=== PATIENT | female | born 1985 | race Caucasian/White ===

== ENCOUNTER 2023-03-27 16:33 | Observation (INO) | payer BC ==
[2023-03-27] MEDS ORDERED: Diphtheria,Pertussis(Acell),Tetanus Vaccine 0.5 ML Syringe IM ONE (16:34)
[2023-03-27] MEDS ORDERED: Ondansetron 4 MG/2 ML SDV IVPUSH ONE (16:34)
[2023-03-27] MEDS ORDERED: HYDROmorphone 0.5 MG/0.5 ML Syringe IVPUSH ONE (16:34)
[2023-03-27] MEDS ORDERED: Sodium Chloride 0.9% 50 ML IV SCH (16:45)
[2023-03-27] MEDS ORDERED: Iopamidol 612 MG/ML 100 ML Bottle IV SCH (16:45)
[2023-03-27 16:46] LABS: BASOPHILS ABSOLUTE AUTO 0.08 K/uL (0.00-0.10); BASOPHILS PERCENT AUTO 0.7 % (0.1-1.3); EOSINOPHILS ABSOLUTE AUTO 0.24 K/uL (0.00-0.40); EOSINOPHILS PERCENT AUTO 2.2 % (0.0-5.4); HEMOGLOBIN 14.6 g/dL (11.2-15.5); IMMATURE GRAN ABSOLUTE AUTO 0.05 K/uL (0.00-0.23); IMMATURE GRAN PERCENT AUTO 0.5 % (0.0-0.7); LYMPHOCYTES ABSOLUTE AUTO 2.73 K/uL (0.8-3.3); LYMPHOCYTES PERCENT AUTO 24.7 % (11.4-47.7); MEAN CORPUSCULAR HEMOGLOBIN 30.4 pg (31.6-35.5); MEAN CORPUSCULAR HGB CONC 34.8 g/dL (31.6-35.5); MEAN CORPUSCULAR VOLUME 87.3 fL (81.4-99.0); MONOCYTES ABSOLUTE AUTO 0.84 K/uL (0.20-0.90); MONOCYTES PERCENT AUTO 7.6 % (3.3-12.6); NEUTROPHILS ABSOLUTE AUTO 7.11 K/uL (1.0-7.6); NEUTROPHILS PERCENT AUTO 64.3 % (40.0-78.1); PLATELET COUNT,PLT 399 K/uL (130-375); RED BLOOD CELL COUNT 4.81 M/uL (3.77-5.24); WHITE BLOOD CELL COUNT,WBC 11.1 K/uL (3.2-11.0)
[2023-03-27 17:11] LABS: A/G RATIO 0.9 (1.2-2.2); ALANINE AMINOTRANSFERASE,ALT 23 U/L (12-78); ALBUMIN 3.3 g/dL (3.4-5.0); ALKALINE PHOSPHATASE 68 U/L (46-116); ANION GAP 13.1 mmol/L (5.0-14.0); ASPARTATE AMNIOTRANSFERASE,AST 20 U/L (15-37); BILIRUBIN TOTAL 0.3 mg/dL (0.2-1.0); BLOOD UREA NITROGEN,BUN 9 mg/dL (7-18); CALCIUM 8.5 mg/dL (8.5-10.1); CARBON DIOXIDE,CO2 24 mmol/L (21-32); CHLORIDE,CL 103 mmol/L (100-108); CREATININE 1.1 mg/dL (0.6-1.0); EST CRCL DRUG DOSING (CG) 76.46 mL/min; ESTIMATED GFR 67 mL/min (>60); GLUCOSE RANDOM 143 mg/dL (74-106); POTASSIUM,K 3.1 mmol/L (3.6-5.2); PROTEIN TOTAL,TP 6.9 g/dL (6.4-8.2); SODIUM,NA 137 mmol/L (140-148)
[2023-03-27 17:28] LABS: APPEARANCE,URINE SLIGHTLY CLOUDY (CLEAR); BILIRUBIN,URINE NEGATIVE (NEGATIVE); COLOR,URINE YELLOW (YELLOW); GLUCOSE,URINE NEGATIVE (NEGATIVE); KETONES,URINE NEGATIVE (NEGATIVE); LEUKOCYTE ESTERASE,URINE NEGATIVE (NEGATIVE); NITRITE,URINE NEGATIVE (NEGATIVE); OCCULT BLOOD,URINE NEGATIVE (NEGATIVE); PH,URINE 5.5 (5.0-8.0); PROTEIN,URINE NEGATIVE (NEGATIVE); UROBILINOGEN,URINE 0.2 EU/dL (0.2-1.0)
[2023-03-27] MEDS ORDERED: HYDROmorphone 1 MG/ML Syringe IVPUSH ONE (17:34)
[2023-03-27] MEDS ORDERED: ceFAZolin 1 GM in Premix Bag 1 BAG IV ONE ×2 (17:34→17:42)
[2023-03-27 17:37] LABS: AMORPHOUS SEDIMENT,URINE NOT SEEN; BACTERIA,URINE FEW; EPITHELIAL CELLS,URINE FEW; MUCUS,URINE MODERATE; RBC,URINE 0-5 (0-5); WBC,URINE 0-5 (0-5)
[2023-03-27] MEDS ORDERED: ceFAZolin 1 GM Vial ONE (17:48)
[2023-03-27] MEDS ORDERED: Sodium Chloride 0.9% 50 ML ONE (17:57)
[2023-03-27] MEDS ORDERED: Docusate Sodium 100 MG Cap PO PRN (19:40)
[2023-03-27] MEDS ORDERED: Ondansetron 4 MG/2 ML SDV IV PRN (19:40)
[2023-03-27] MEDS ORDERED: Acetaminophen 325 MG Tab PO PRN (19:40)
[2023-03-27] MEDS ORDERED: Ondansetron 4 MG Tab.DIS PO PRN (19:40)
[2023-03-27] MEDS ORDERED: Melatonin 3 MG Tab PO PRN (20:03)
[2023-03-27] MEDS: HYDROmorphone 1 MG/ML Syringe IVPUSH PRN (20:36)
[2023-03-27] MEDS: Sodium Chloride 0.9% 1,000 ML IV SCH (20:36)
[2023-03-27] MEDS: Pantoprazole 40 MG Tab.CR PO SCH (21:38)
[2023-03-28] MEDS ORDERED: ceFAZolin 2 GM in Sodium Chloride 0.9% 50 ML IV SCH (02:00)
[2023-03-28 04:55] LABS: BASOPHILS ABSOLUTE AUTO 0.03 K/uL (0.00-0.10); BASOPHILS PERCENT AUTO 0.3 % (0.1-1.3); EOSINOPHILS ABSOLUTE AUTO 0.11 K/uL (0.00-0.40); EOSINOPHILS PERCENT AUTO 1.3 % (0.0-5.4); HEMATOCRIT 39.3 % (34.3-46.0); HEMOGLOBIN 13.2 g/dL (11.2-15.5); IMMATURE GRAN PERCENT AUTO 0.2 % (0.0-0.7); LYMPHOCYTES ABSOLUTE AUTO 1.31 K/uL (0.8-3.3); LYMPHOCYTES PERCENT AUTO 15.1 % (11.4-47.7); MEAN CORPUSCULAR HEMOGLOBIN 30.2 pg (31.6-35.5); MEAN CORPUSCULAR HGB CONC 33.6 g/dL (31.6-35.5); MEAN CORPUSCULAR VOLUME 89.9 fL (81.4-99.0); MONOCYTES PERCENT AUTO 10.3 % (3.3-12.6); NEUTROPHILS ABSOLUTE AUTO 6.33 K/uL (1.0-7.6); NEUTROPHILS PERCENT AUTO 72.8 % (40.0-78.1); PLATELET COUNT,PLT 298 K/uL (130-375); RED BLOOD CELL COUNT 4.37 M/uL (3.77-5.24); WHITE BLOOD CELL COUNT,WBC 8.7 K/uL (3.2-11.0)
[2023-03-28] MEDS: Sodium Chloride 0.9% 1,000 ML IV SCH (04:55)
[2023-03-28] MEDS: HYDROmorphone 1 MG/ML Syringe IVPUSH PRN ×2 (04:55→09:25)
[2023-03-28 05:10] LABS: ANION GAP 6.3 mmol/L (5.0-14.0); CALCIUM 7.9 mg/dL (8.5-10.1); CREATININE 0.8 mg/dL (0.6-1.0); EST CRCL DRUG DOSING (CG) 105.13 mL/min; POTASSIUM,K 4.3 mmol/L (3.6-5.2)
[2023-03-28 05:20] LABS: IMMATURE GRAN ABSOLUTE AUTO 0.02 K/uL (0.00-0.23)
[2023-03-28] MEDS ORDERED: ARIPiprazole 10 MG Tab PO SCH ×2 (09:00)
[2023-03-28] MEDS: Venlafaxine 75 MG Cap.ER PO SCH (09:28)
[2023-03-28] MEDS: ceFAZolin 2 GM in Premix Bag 1 BAG IV SCH ×2 (09:28→18:09)
[2023-03-28] MEDS: oxyCODONE 5 MG Tab PO PRN ×3 (13:06→22:51)
[2023-03-28] MEDS: ARIPiprazole 10 MG Tab PO SCH (16:10)
[2023-03-28] MEDS: Cyclobenzaprine 10 MG Tab PO PRN (20:38)
[2023-03-28] MEDS: Pantoprazole 40 MG Tab.CR PO SCH (20:39)
[2023-03-29] MEDS: ceFAZolin 2 GM in Premix Bag 1 BAG IV SCH (01:33)
[2023-03-29 04:11] LABS: HEMATOCRIT 36.6 % (34.3-46.0); HEMOGLOBIN 12.2 g/dL (11.2-15.5); MEAN CORPUSCULAR HGB CONC 33.3 g/dL (31.6-35.5); MEAN CORPUSCULAR VOLUME 89.9 fL (81.4-99.0); RED BLOOD CELL COUNT 4.07 M/uL (3.77-5.24)
[2023-03-29] MEDS ORDERED: Cephalexin 250 MG Cap PO SCH (06:00)
[2023-03-29] MEDS: oxyCODONE 5 MG Tab PO PRN (09:38)
[2023-03-29] MEDS: Cyclobenzaprine 10 MG Tab PO PRN (09:39)
[2023-03-29] MEDS: Cephalexin 250 MG Cap PO SCH ×2 (09:40→14:55)
[2023-03-29] MEDS: ARIPiprazole 10 MG Tab PO SCH (09:41)
[2023-03-29] MEDS: Venlafaxine 75 MG Cap.ER PO SCH (09:42)
== END 2023-03-29 16:04 | disposition home or self-care (01) ==
LOC: JP.ED 16:33 → JP.MS 19:32
PROVIDERS: ADMIT Internal Medicine; ATTEND Internal Medicine
DX: S30.1XXA Contusion of abdominal wall, initial encounter (principal); S31.119A Laceration without foreign body of abdominal wall, unspecified quadrant without penetration into peritoneal cavity, initial encounter; S22.31XA Fracture of one rib, right side, initial encounter for closed fracture; J43.9 Emphysema, unspecified; Z79.899 Other long term (current) drug therapy; Z20.822 Contact with and (suspected) exposure to COVID-19; V80.010A Animal-rider injured by fall from or being thrown from horse in noncollision accident, initial encounter
CPT/HCPCS: 36415; 70450; 71250; 72125; 74176; 76377; 80048; 80053; 81001; 85018; 85025; 85027; 85610; 87635; 90471; 90715; 96361; 96365; 96375; 96376; 97162; 99284; 99285; A9270; G0378; J0690; J1170; J2405; J3490; J7030; U0002